=== PATIENT | male | born 1995 | race American Indian/Alaskan Native ===

== ENCOUNTER 2017-08-05 18:08 | Emergency (ER) | payer SELFPAY ==
[2017-08-05 18:39] VITALS: BP 123/61
--- NOTE | 2017-08-05 21:22 | XRay Report ---
FINAL REPORT EXAM: XR CHEST ROUTINE 2V HISTORY: cough CP TECHNIQUE: Two view chest PA and lateral PRIORS: None. FINDINGS: Cardiac and mediastinal contours are unremarkable. No focal pulmonary infiltrate is identified. No pleural fluid collection seen. Pulmonary vasculature is unremarkable. IMPRESSION: Negative two-view chest
[2017-08-05 21:31] LABS: Basophils % (Auto) 1.1 % (0.0-1.8); Eosinophils % (Auto) 2.4 % (0.0-4.3); Hematocrit 43.4 % (35.5-45.6); Hemoglobin 14.4 gm/dl (11.8-15.2); Mean Corpuscular HGB Conc 33 % (32-34); Mean Corpuscular Hemoglobin 32 pg (28-32); Mean Corpuscular Volume 96 fl (84-94); Platelet Count 256 K/mm3 (140-440); Red Blood Count 4.55 M/mm3 (3.65-5.03); Red Cell Distribution Width 13.5 % (13.2-15.2); White Blood Count 9.4 K/mm3 (4.5-11.0)
--- NOTE | 2017-08-05 21:44 | Emergency Department Report ---
- General Chief Complaint: Upper Respiratory Infection Stated Complaint: CP/COUGH Time Seen by Provider: 08/05/17 20:59 Source: patient Mode of arrival: Ambulatory Limitations: No Limitations - Related Data Previous Rx's Medication Instructions Recorded Last Taken Type ALBUTEROL Inhaler [ProAir HFA 2 puff IH QID PRN #1 inhalation 08/05/17 Unknown Rx Inhaler] Naproxen 500 mg PO BID PRN #30 tablet 08/05/17 Unknown Rx Phenylephrine/Dm/Acetaminop/GG 10 ml PO Q6H PRN #1 liquid 08/05/17 Unknown Rx [Mucinex Fafm-Vvp-Dayfweepxi Lq] Allergies Allergy/AdvReac Type Severity Reaction Status Date / Time No Known Allergies Allergy Verified 08/05/17 18:40 ED Review of Systems ROS: Stated complaint: CP/COUGH Other details as noted in HPI ED Past Medical Hx - Past Medical History Previous Medical History?: No - Surgical History Past Surgical History?: No - Social History Smoking Status: Current Some Day Smoker Substance Use Type: Alcohol - Medications Home Medications: Home Medications Medication Instructions Recorded Confirmed Last Taken Type ALBUTEROL Inhaler [ProAir HFA 2 puff IH QID PRN #1 inhalation 08/05/17 Unknown Rx Inhaler] Naproxen 500 mg PO BID PRN #30 tablet 08/05/17 Unknown Rx Phenylephrine/Dm/Acetaminop/GG 10 ml PO Q6H PRN #1 liquid 08/05/17 Unknown Rx [Mucinex Epkm-Jxb-Llneprcdyb Lq] ED Physical Exam - General Limitations: No Limitations ED Course Vital Signs 08/05/17 18:33 Temperature 98 F Pulse Rate 64 Respiratory 16 Rate Blood Pressure 123/61 O2 Sat by Pulse 100 Oximetry ED Medical Decision Making - Lab Data Result diagrams: 08/05/17 21:17 Critical care attestation.: If time is entered above; I have spent that time in minutes in the direct care of this critically ill patient, excluding procedure time. ED Disposition Clinical Impression: Bronchitis Disposition: [id number] TO HOME OR SELFCARE Is pt being admited?: No Does the pt Need Aspirin: No Condition: Stable Instructions: Chronic Bronchitis (ED), Acute Bronchitis (ED) Prescriptions: ALBUTEROL Inhaler [ProAir HFA Inhaler] 2 puff IH QID PRN #1 inhalation PRN Reason: Shortness Of Breath Naproxen 500 mg PO BID PRN #30 tablet PRN Reason: Fever Phenylephrine/Dm/Acetaminop/GG [Mucinex Lmqe-Bza-Oywicdrwkj Lq] 10 ml PO Q6H PRN #1 liquid PRN Reason: Cough Referrals: [facility] [Outside] - 3-5 Days [facility] [Outside] - 3-5 Days Forms: Accompanied Note, Work/School Release Form(ED) Time of Disposition: 21:43
[2017-08-05 21:49] LABS: Anion Gap 16 mmol/L; BUN/Creatinine Ratio 20; Blood Urea Nitrogen 18 mg/dL (9-20); Calcium 9.6 mg/dL (8.4-10.2); Carbon Dioxide 31 mmol/L (22-30); Chloride 101.8 mmol/L (98-107); Creatine Kinase 253 units/L (55-170); Glucose 84 mg/dL (75-100); Potassium 4.4 mmol/L (3.6-5.0); Sodium 144 mmol/L (137-145)
== END 2017-08-05 22:00 | disposition home or self-care (01) ==
LOC: ED 18:08
DX: J40 Bronchitis, not specified as acute or chronic (principal); F17.200 Nicotine dependence, unspecified, uncomplicated
CPT/HCPCS: 36415; 71020; 80048; 82550; 82805; 85025

== ENCOUNTER 2018-05-15 03:13 | Emergency (ER) | payer SELFPAY ==
[2018-05-15] MEDS ORDERED: ASPIRIN PO ONE (03:22)
[2018-05-15 03:36] LABS: Basophils # (Auto) 0.1 K/mm3 (0.0-0.1); Eosinophils # (Auto) 0.3 K/mm3 (0.0-0.4); Eosinophils % (Auto) 2.2 % (0.0-4.3); Hematocrit 43.3 % (35.5-45.6); Hemoglobin 14.5 gm/dl (11.8-15.2); Lymphocytes # (Auto) 3.5 K/mm3 (1.2-5.4); Lymphocytes % (Auto) 28.2 % (13.4-35.0); Mean Corpuscular HGB Conc 34 % (32-34); Mean Corpuscular Hemoglobin 33 pg (28-32); Mean Corpuscular Volume 97 fl (84-94); Monocytes # (Auto) 0.7 K/mm3 (0.0-0.8); Monocytes % (Auto) 5.8 % (0.0-7.3); Platelet Count 260 K/mm3 (140-440); Red Blood Count 4.45 M/mm3 (3.65-5.03); Red Cell Distribution Width 13.5 % (13.2-15.2)
[2018-05-15 03:51] LABS: BUN/Creatinine Ratio 16; Blood Urea Nitrogen 14 mg/dL (9-20); Calcium 9.7 mg/dL (8.4-10.2); Hemolysis Index 13
--- NOTE | 2018-05-15 08:07 | Emergency Department Report ---
ED Chest Pain HPI - General Chief Complaint: Chest Pain Stated Complaint: CHEST PAIN Time Seen by Provider: 05/15/18 07:59 Source: patient Mode of arrival: Ambulatory Limitations: No Limitations - History of Present Illness Initial Comments: Patient is a 23-year-old male that presents to emergency room with complaints of chest pain 1 day. Patient states that the chest pain is in his right chest and is nonradiating. Patient states the pain is a 10 out of 10. Patient states that the pain is worse with movement and palpation. Patient states the pain is better with rest. 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 Patient denies shortness of breath. Patient denies diaphoresis. Patient denies nausea vomiting. Patient denies abdominal pain and fever. Patient denies chills. MD Complaint: chest pain -: Sudden Pain Location: right chest Pain Radiation: none Severity: severe Severity scale (0 -10): 10 Quality: sharp Improves With: rest Worsens With: palpation, movement Context: trauma/injury (patient denies trauma to the area however patient states he could've lifted something heavy at work and injured his chest wall) re: denies: nausea, vomting, diaphoresis, dyspnea, sense of impending doom Other Symptoms: denies: cough, fever, syncope, rash, acid taste in mouth, leg swelling, palpitations, burping Treatments Prior to Arrival: none Aspirin use within the Past 7 Days: (0) No - Related Data On Oral Contraceptives: No Previous Rx's Medication Instructions Recorded Last Taken Type ALBUTEROL Inhaler [ProAir HFA 2 puff IH QID PRN #1 inhalation 08/05/17 Unknown Rx Inhaler] Azithromycin [Zithromax Z-DAMIAN] 250 mg PO QDAY #6 tablet 08/05/17 Unknown Rx Naproxen 500 mg PO BID PRN #30 tablet 08/05/17 Unknown Rx Phenylephrine/Dm/Acetaminop/GG 10 ml PO Q6H PRN #1 liquid 08/05/17 Unknown Rx [Mucinex Ciwt-Ihc-Zfprxknbpt Lq] Naproxen [Naprosyn] 500 mg PO Q12HR PRN #15 tablet 05/15/18 Unknown Rx traMADol [Ultram] 50 mg PO Q4HR PRN #10 tablet 05/15/18 Unknown Rx Allergies Allergy/AdvReac Type Severity Reaction Status Date / Time No Known Allergies Allergy Verified 08/05/17 18:40 Heart Score - HEART Score History: Slightly suspicious EKG: Normal Age: < 45 Risk factors: No known risk factors Troponin: < normal limit HEART Score: 0 ED Review of Systems ROS: Stated complaint: CHEST PAIN Other details as noted in HPI Constitutional: denies: chills, fever Eyes: denies: eye pain, eye discharge, vision change ENT: denies: ear pain, throat pain Respiratory: denies: cough, shortness of breath, wheezing Cardiovascular: chest pain. denies: palpitations Endocrine: no symptoms reported Gastrointestinal: denies: abdominal pain, nausea, diarrhea Genitourinary: denies: urgency, dysuria Musculoskeletal: denies: back pain, joint swelling, arthralgia Skin: denies: rash, lesions Neurological: denies: headache, weakness, paresthesias Psychiatric: denies: anxiety, depression Hematological/Lymphatic: denies: easy bleeding, easy bruising ED Past Medical Hx - Past Medical History Previous Medical History?: Yes Additional medical history: slep Apnea - Surgical History Past Surgical History?: No - Family History Family history: hypertension - Social History Smoking Status: Current Every Day Smoker Substance Use Type: Alcohol, Marijuana - Medications Home Medications: Home Medications Medication Instructions Recorded Confirmed Last Taken Type ALBUTEROL Inhaler [ProAir HFA 2 puff IH QID PRN #1 inhalation 08/05/17 Unknown Rx Inhaler] Azithromycin [Zithromax Z-DAMIAN] 250 mg PO QDAY #6 tablet 08/05/17 Unknown Rx Naproxen 500 mg PO BID PRN #30 tablet 08/05/17 Unknown Rx Phenylephrine/Dm/Acetaminop/GG 10 ml PO Q6H PRN #1 liquid 08/05/17 Unknown Rx [Mucinex Jpyy-Qio-Wqxcymwuug Lq] Naproxen [Naprosyn] 500 mg PO Q12HR PRN #15 tablet 05/15/18 Unknown Rx traMADol [Ultram] 50 mg PO Q4HR PRN #10 tablet 05/15/18 Unknown Rx ED Physical Exam - General Limitations: No Limitations General appearance: alert, in no apparent distress - Head Head exam: Present: atraumatic, normocephalic - Eye Eye exam: Present: normal appearance - ENT ENT exam: Present: mucous membranes moist - Neck Neck exam: Present: normal inspection - Respiratory Respiratory exam: Present: normal lung sounds bilaterally, chest wall tenderness (patient has notable right sided chest tenderness to palpation that reproduces symptoms.). Absent: respiratory distress, wheezes, rales, rhonchi, stridor - Cardiovascular Cardiovascular Exam: Present: regular rate, normal rhythm. Absent: systolic murmur, diastolic murmur, rubs, gallop - GI/Abdominal GI/Abdominal exam: Present: soft, normal bowel sounds - Rectal Rectal exam: Present: deferred - Extremities Exam Extremities exam: Present: normal inspection - Back Exam Back exam: Present: normal inspection - Neurological Exam Neurological exam: Present: alert, oriented X3 - Psychiatric Psychiatric exam: Present: normal affect, normal mood - Skin Skin exam: Present: warm, dry, intact, normal color. Absent: rash ED Course Vital Signs 05/15/18 05/15/18 05/15/18 03:18 03:19 07:57 Temperature 97.5 F L 97.5 F L 97.8 F Pulse Rate 69 72 73 Respiratory 16 16 16 Rate Blood Pressure 132/86 Blood Pressure 132/86 104/71 [Right] O2 Sat by Pulse 100 100 100 Oximetry 05/15/18 05/15/18 08:00 09:40 Temperature 97.8 F Pulse Rate 71 Respiratory 16 16 Rate Blood Pressure Blood Pressure 110/73 [Right] O2 Sat by Pulse 100 100 Oximetry - Reevaluation(s) Reevaluation #1: Discussed all results with patient. 05/15/18 08:08 DUC score - Duc Score Age > 65: (0) No Aspirin use within the Past 7 Days: (0) No 3 or more CAD Risk Factors: (0) No 2 or more Angina events in past 24 hrs: (0) No Known CAD with more than 50% Stenosis: (0) No Elevated Cardiac Markers: (0) No ST Deviation Greater than 0.5mm: (0) No DUC Score: 0 ED Medical Decision Making - Lab Data Result diagrams: 05/15/18 03:27 05/15/18 03:27 - EKG Data -: EKG Interpreted by Ar EKG shows normal: sinus rhythm, axis, intervals, QRS complexes, ST-T waves Rate: normal - Medical Decision Making H and is a 23-year-old male that presents to emergency with complaints of right- sided chest pain. Patient's cardiac enzymes and EKG are negative. Labs obtained except for incidentally high WBC. Will have patient follow up with primary care. Patient's chest pain is reproducible to palpation. Will give patient anti-inflammatories and pain medication and have patient rest for a few days. We'll send patient home with lifting restrictions and work restrictions. - Differential Diagnosis cp. Chest wall pain. Costochondritis, muscle strain. Critical care attestation.: If time is entered above; I have spent that time in minutes in the direct care of this critically ill patient, excluding procedure time. ED Disposition Clinical Impression: Chest wall muscle strain Qualifiers: Encounter type: initial encounter Qualified Code(s): S29.011A - Strain of muscle and tendon of front wall of thorax, initial encounter Chest pain Qualifiers: Chest pain type: unspecified Qualified Code(s): R07.9 - Chest pain, unspecified Disposition: TO HOME OR SELFCARE Is pt being admited?: No Does the pt Need Aspirin: No Condition: Stable Instructions: Chest Pain (ED), Muscle Strain (ED) Additional Instructions: Patient follow up with primary care in 3-5 days. Patient to return to ER if condition worsens. Patient to rest. Patient to do light duty. Patient to avoid lifting. Patient to take meds as directed. Patient to increase water. Prescriptions: Naproxen [Naprosyn] 500 mg PO Q12HR PRN #15 tablet PRN Reason: Pain, Moderate (4-6) traMADol [Ultram] 50 mg PO Q4HR PRN #10 tablet PRN Reason: Pain Referrals: PRIMARY CARE, [Primary Care Provider] - 3-5 Days Forms: Work/School Release Form(ED) Time of Disposition: 09:16
[2018-05-15 08:39] LABS: Creatine Kinase MB 1.7 ng/mL (0.0-4.0)
[2018-05-15 09:42] VITALS: BP 110/73
== END 2018-05-15 09:43 | disposition home or self-care (01) ==
LOC: ED 03:13
DX: S29.011A Strain of muscle and tendon of front wall of thorax, initial encounter (principal); F17.200 Nicotine dependence, unspecified, uncomplicated; F12.10 Cannabis abuse, uncomplicated; Z79.899 Other long term (current) drug therapy; X50.0XXA Overexertion from strenuous movement or load, initial encounter; Y93.89 Activity, other specified; Y99.0 Civilian activity done for income or pay; Y92.69 Other specified industrial and construction area as the place of occurrence of the external cause
CPT/HCPCS: 36415; 80048; 82550; 82553; 84484; 85025; 93005; 93010